=== PATIENT | female | born 1985 | race Hispanic/Latino ===

== ENCOUNTER → 2018-07-07 12:13 | Outpatient (CLI) | payer OTHER, SELFPAY ==
[2018-07-07 13:48] LABS: Thyroid Stimulating Hormone 1.15 uIU/mL (0.47-4.68)
== END ==
PROVIDERS: PCP Hospitalist; Visit Provider Hospitalist
DX: F32.9 Major depressive disorder, single episode, unspecified (principal)
CPT/HCPCS: 36415; 84443

== ENCOUNTER → 2019-06-11 07:58 | Outpatient (CLI) | payer OTHER, SELFPAY ==
[2019-06-11 08:48] LABS: Hematocrit 44.8 % (36-46); Hemoglobin 14.9 g/dL (12.0-16.0); Mean Corpuscular HGB Conc 33.3 % (30-36); Mean Corpuscular Hemoglobin 29.5 PG (26-34); Mean Corpuscular Volume 88.7 fL (80-100); Platelet Count 314 X10^3/uL (150-400); Red Blood Cell Count 5.05 X10^6/uL (4.0-5.2); Red Cell Distribution Width 13.9 % (11.6-14.8); White Blood Cell Count 10.7 X10^3/uL (4.5-11.0)
[2019-06-11 09:01] LABS: Alanine Aminotransferase 29 IU/L (<35); Albumin 4.3 g/dL (3.5-5.0); Albumin Globulin Ratio 1.2 (1.0-2.8); Alkaline Phosphatase 124 U/L (38-126); Aspartate Aminotransferase 30 IU/L (14-36); BUN Creatinine Ratio 15.5 (6-22); Bilirubin Total 0.4 mg/dL (0.2-1.3); Blood Urea Nitrogen 11 mg/dL (7-17); Calcium 9.3 mg/dL (8.4-10.2); Carbon Dioxide 28 mmol/L (22-32); Chloride 104 mmol/L (98-107); Cholesterol 216 mg/dL (140-199); Estimated Glomerular Filt Rate > 60.0 mL/min (>60); Globulin 3.6 g/dL (1.7-4.1); Glucose 86 mg/dL (70-100); HDL Cholesterol 40 mg/dL (40-60); HEMOLYSIS < 15 (0-50); LDL Cholesterol Calculated 148 mg/dL (<100); Potassium 3.6 mmol/L (3.4-5.1); Sodium 141 mmol/L (137-145); Total Protein 7.9 g/dL (6.3-8.2); Triglycerides 139 mg/dL (35-150)
== END ==
PROVIDERS: PCP Nurse Practitioner Family; Referring Provider Nurse Practitioner Family; Visit Provider Nurse Practitioner Family
DX: Z00.00 Encounter for general adult medical examination without abnormal findings (principal); Z13.6 Encounter for screening for cardiovascular disorders
CPT/HCPCS: 36415; 80053; 80061; 85027

== ENCOUNTER → 2020-11-06 10:32 | Outpatient (CLI) | payer OTHER, MEDICAID, SELFPAY ==
[2020-11-06 11:30] LABS: Hematocrit 45.1 % (36-46); Hemoglobin 14.8 g/dL (12.0-16.0); Mean Corpuscular HGB Conc 32.7 % (30-36); Mean Corpuscular Hemoglobin 28.6 PG (26-34); Mean Corpuscular Volume 87.3 fL (80-100); Platelet Count 350 X10^3/uL (150-400); Red Blood Cell Count 5.17 X10^6/uL (4.0-5.2); Red Cell Distribution Width 14.2 % (11.6-14.8); White Blood Cell Count 11.4 X10^3/uL (4.5-11.0)
[2020-11-06 11:52] LABS: Alanine Aminotransferase 34 IU/L (<35); Albumin Globulin Ratio 1.2 (1.0-2.8); Alkaline Phosphatase 105 U/L (38-126); Aspartate Aminotransferase 37 IU/L (14-36); BUN Creatinine Ratio 13.8 (6-22); Bilirubin Total 0.5 mg/dL (0.2-1.3); Blood Urea Nitrogen 9 mg/dL (7-17); Calcium 9.4 mg/dL (8.4-10.2); Carbon Dioxide 26 mmol/L (22-32); Chloride 105 mmol/L (98-107); Cholesterol 230 mg/dL (140-199); Estimated Glomerular Filt Rate > 60.0 mL/min (>60); Globulin 3.4 g/dL (1.7-4.1); Glucose 87 mg/dL (70-100); HDL Cholesterol 42 mg/dL (40-60); HEMOLYSIS < 15 (0-50); LDL Cholesterol Calculated 162 mg/dL (<100); Potassium 3.9 mmol/L (3.4-5.1); Sodium 140 mmol/L (137-145); Total Protein 7.4 g/dL (6.3-8.2); Triglycerides 132 mg/dL (35-150)
== END ==
PROVIDERS: PCP Nurse Practitioner Family; Referring Provider Nurse Practitioner Family; Visit Provider Nurse Practitioner Family
DX: Z00.00 Encounter for general adult medical examination without abnormal findings (principal); Z13.6 Encounter for screening for cardiovascular disorders
CPT/HCPCS: 36415; 80053; 80061; 85027

== ENCOUNTER → 2021-11-25 09:44 | Outpatient (CLI) | payer OTHER, MEDICAID, SELFPAY ==
--- NOTE | 2021-11-25 09:46 | DI.US.S_ITS ---
PROCEDURE: US PELVIC COMPLETE INDICATIONS: INTRAUTERINE DEVICE LOCATION TECHNIQUE: Real-time scanning was performed of the pelvic organs, with image documentation. Additional endovaginal scanning was necessary due to incomplete visualization of the adnexal and endometrial structures by transabdominal scanning. COMPARISON: None. FINDINGS: Uterus: The uterus is retroverted measuring 6.7 x 4 x 3.2 cm. Endometrium measures 5 mm. IUD in the endometrium. There is trace fluid in the cervix. Ovaries: Right ovary measures 3.4 x 2.3 x 2.3 cm. Volume is 9 cc. Left ovary measures 2.8 x 2.2 x 1.6 cm. Volume is 5 cc. Follicles are seen in both ovaries. Other: No pathologic free abdominal or pelvic fluid. IMPRESSION: IUD is seen in the endometrium. We strive to produce accurate, complete, and clear reports of imaging services. To assist us in improving patient care, this report was composed using standard report templates and voice recognition software. Therefore, it may contain abnormal punctuation, insertions and/or omissions. Occasional wrong-word or sound-alike substitutions may occur. Though we review the report and make efforts to correct it, we do recommend that the report be read carefully in proper context to recognize any text inaccuracies. Dictated by: Gurwinder Acevedo M.D. on 11/27/2021 at 9:49 Approved by: Gurwinder Acevedo M.D. on 11/27/2021 at 9:51
== END ==
PROVIDERS: PCP Registered Nurse Diabetes Educator; Referring Provider Registered Nurse Diabetes Educator; Visit Provider Registered Nurse Diabetes Educator
DX: T83.32XA Displacement of intrauterine contraceptive device, initial encounter (principal)
CPT/HCPCS: 76830; 76856

== ENCOUNTER → 2023-02-23 15:33 | Outpatient (CLI) | payer OTHER, MEDICAID, SELFPAY ==
--- NOTE | 2023-02-23 15:35 | DI.RAD.S_ITS ---
PROCEDURE: XR SOFT TISSUE NECK INDICATIONS: pls eval wheezing/stridor by history TECHNIQUE: 2 views of the neck were acquired. COMPARISON: None. FINDINGS: Airway: The airway appears patent. Soft tissues: Prevertebral soft tissues are normal in thickness. The epiglottis and aryepiglottic folds appear normal. No soft tissue gas. Bones: No suspicious bony lesions. Visualized cervical spine is normally aligned. IMPRESSION: There ways patent. The epiglottis is normal. Dictated by: Tab Baxter M.D. on 02/23/2023 at 16:36 Approved by: Tab Baxter M.D. on 02/23/2023 at 16:37
--- NOTE | 2023-02-23 15:35 | DI.RAD.S_ITS ---
PROCEDURE: XR CHEST 2V INDICATIONS: pls eval wheezing/stridor by history TECHNIQUE: 2 views of the chest were acquired. COMPARISON: None. FINDINGS: Surgical changes and devices: None. Lungs and pleura: Lungs are clear. No pleural effusions or pneumothorax. Mediastinum: Mediastinal contours are normal. Heart size is normal. Bones and chest wall: No suspicious bony abnormalities. Soft tissues appear unremarkable. IMPRESSION: No acute cardiopulmonary abnormality is seen. Dictated by: Tab Baxter M.D. on 02/23/2023 at 16:36 Approved by: Tab Baxter M.D. on 02/23/2023 at 16:36
== END ==
PROVIDERS: PCP Registered Nurse Diabetes Educator; Referring Provider Registered Nurse Diabetes Educator; Visit Provider Registered Nurse Diabetes Educator
DX: R06.2 Wheezing (principal); R06.1 Stridor
CPT/HCPCS: 70360; 71046

== ENCOUNTER → 2023-03-23 09:09 | Outpatient (CLI) | payer OTHER, MEDICAID, SELFPAY | LOC: RESP 09:10 | PROVIDERS: PCP Registered Nurse Diabetes Educator; Referring Provider Registered Nurse Diabetes Educator; Visit Provider Registered Nurse Diabetes Educator | DX: R06.2 Wheezing (principal); R06.1 Stridor | CPT/HCPCS: 94060; 94726; 94729 ==

== ENCOUNTER → 2023-05-25 10:09 | Outpatient (CLI) | payer OTHER, MEDICAID, SELFPAY ==
[2023-05-25 10:59] LABS: Hematocrit 46.3 % (36-46); Hemoglobin 15.6 g/dL (12.0-16.0); Mean Corpuscular HGB Conc 33.6 % (30-36); Mean Corpuscular Volume 86.2 fL (80-100); Platelet Count 301 X10^3/uL (150-400); Red Blood Cell Count 5.37 X10^6/uL (4.0-5.2); Red Cell Distribution Width 14.5 % (11.6-14.8); White Blood Cell Count 14.6 X10^3/uL (4.5-11.0)
[2023-05-25 11:51] LABS: TSH w/ Reflex to FT4 1.92 uIU/mL (0.47-4.68)
[2023-05-25 12:27] LABS: Alanine Aminotransferase 30 IU/L (<35); Albumin 4.2 g/dL (3.5-5.0); Albumin Globulin Ratio 1.1 (1.0-2.8); Alkaline Phosphatase 106 U/L (38-126); BUN Creatinine Ratio 14.7 (6-22); Bilirubin Total 0.9 mg/dL (0.2-1.3); Blood Urea Nitrogen 10 mg/dL (7-17); Calcium 9.3 mg/dL (8.4-10.2); Carbon Dioxide 24 mmol/L (22-32); Chloride 106 mmol/L (98-107); Cholesterol 248 mg/dL (140-199); Estimated Glomerular Filt Rate > 60 mL/min (>60); Globulin 3.9 g/dL (1.7-4.1); Glucose 83 mg/dL (70-100); HDL Cholesterol 49 mg/dL (40-60); LDL Cholesterol Calculated 179 mg/dL (<100); Potassium 4.1 mmol/L (3.4-5.1); Sodium 138 mmol/L (137-145); Total Protein 8.1 g/dL (6.3-8.2); Triglycerides 101 mg/dL (35-150)
[2023-05-25 12:30] LABS: Aspartate Aminotransferase 40 IU/L (14-36); HEMOLYSIS 64 (0-50)
== END ==
PROVIDERS: PCP Registered Nurse Diabetes Educator; Referring Provider Registered Nurse Diabetes Educator; Visit Provider Registered Nurse Diabetes Educator
DX: Z00.00 Encounter for general adult medical examination without abnormal findings (principal); E78.5 Hyperlipidemia, unspecified
CPT/HCPCS: 36415; 80053; 80061; 84443; 85027

== ENCOUNTER → 2024-07-12 09:04 | Outpatient (CLI) | payer OTHER, SELFPAY ==
[2024-07-12 10:12] LABS: Add Manual Diff / Slide Review NO; Basophils Absolute Auto 200 /uL (0-100); Basophils Percent Auto 1.2 % (0-2); Eosinophils Absolute Auto 400 /uL (0-450); Eosinophils Percent Auto 2.8 % (2-4); Hematocrit 43.4 % (36-46); Hemoglobin 14.6 g/dL (12.0-16.0); Lymphocytes Absolute Auto 4200 /uL (1100-4500); Lymphocytes Percent Auto 32.6 % (25-40); Mean Corpuscular HGB Conc 33.6 % (30-36); Mean Corpuscular Hemoglobin 28.5 PG (26-34); Mean Corpuscular Volume 84.8 fL (80-100); Monocytes Absolute Auto 700 /uL (0-900); Monocytes Percent Auto 5.6 % (3-14); Neutrophils Absolute Auto 7500 /uL (1500-7000); Neutrophils Percent Auto 57.8 % (50-75); Platelet Count 398 X10^3/uL (150-400); Red Blood Cell Count 5.11 X10^6/uL (4.0-5.2)
[2024-07-12 10:23] LABS: Alanine Aminotransferase 41 IU/L (<35); Albumin 4.2 g/dL (3.5-5.0); Albumin Globulin Ratio 1.1 (1.0-2.8); Alkaline Phosphatase 118 U/L (38-126); Aspartate Aminotransferase 50 IU/L (14-36); BUN Creatinine Ratio 11.5 (6-22); Bilirubin Total 1.2 mg/dL (0.2-1.3); Blood Urea Nitrogen 9 mg/dL (7-17); Calcium 9.3 mg/dL (8.4-10.2); Carbon Dioxide 25 mmol/L (22-32); Chloride 103 mmol/L (98-107); Cholesterol 243 mg/dL (140-199); Estimated Glomerular Filt Rate > 60 mL/min (>60); Glucose 88 mg/dL (70-100); HDL Cholesterol 51 mg/dL (40-60); HEMOLYSIS 42 (0-50); LDL Cholesterol Calculated 172 mg/dL (<100); Potassium 4.4 mmol/L (3.4-5.1); Sodium 139 mmol/L (137-145); Total Protein 8.2 g/dL (6.3-8.2); Triglycerides 100 mg/dL (35-150)
[2024-07-12 10:37] LABS: HEMOLYSIS 38 (0-50); Iron 60 ug/dL (37-170)
[2024-07-12 10:49] LABS: Percent Iron Saturation 24 % (15-50); Total Iron Binding Capacity 247 ug/dL (265-497); Transferrin 201 mg/dL (206-381)
[2024-07-12 10:57] LABS: Ferritin 46 ng/mL (6-137)
[2024-07-12 11:06] LABS: TSH w/ Reflex to FT4 2.45 uIU/mL (0.47-4.68)
[2024-07-12 11:18] LABS: Hepatitis B Surface Antigen NEGATIVE s/c (NEGATIVE)
[2024-07-12 11:37] LABS: Hep C Virus Ab w/Reflex Quant NEGATIVE s/c (NEGATIVE)
== END ==
PROVIDERS: PCP Registered Nurse Diabetes Educator; Referring Provider Registered Nurse Diabetes Educator; Visit Provider Registered Nurse Diabetes Educator
DX: E78.5 Hyperlipidemia, unspecified (principal); D72.829 Elevated white blood cell count, unspecified; R74.8 Abnormal levels of other serum enzymes
CPT/HCPCS: 36415; 80053; 80061; 82728; 83540; 83550; 84443; 85025; 86803; 87340

== ENCOUNTER → 2024-07-26 09:18 | Outpatient (CLI) | payer OTHER, SELFPAY ==
[2024-07-26 10:51] LABS: Add Manual Diff / Slide Review NO; Basophils Absolute Auto 100 /uL (0-100); Basophils Percent Auto 0.9 % (0-2); Eosinophils Absolute Auto 200 /uL (0-450); Eosinophils Percent Auto 2.1 % (2-4); Hematocrit 42.6 % (36-46); Hemoglobin 14.5 g/dL (12.0-16.0); Lymphocytes Absolute Auto 2700 /uL (1100-4500); Lymphocytes Percent Auto 28.4 % (25-40); Mean Corpuscular Hemoglobin 29.1 PG (26-34); Mean Corpuscular Volume 85.5 fL (80-100); Monocytes Absolute Auto 600 /uL (0-900); Monocytes Percent Auto 6.1 % (3-14); Neutrophils Absolute Auto 6000 /uL (1500-7000); Neutrophils Percent Auto 62.5 % (50-75); Platelet Count 347 X10^3/uL (150-400); Red Blood Cell Count 4.98 X10^6/uL (4.0-5.2); Red Cell Distribution Width 14.8 % (11.6-14.8); White Blood Cell Count 9.5 X10^3/uL (4.5-11.0)
[2024-07-26 11:14] LABS: Erythrocyte Sedimentation Rate 11 MM/HR (0-20)
[2024-07-26 11:42] LABS: C-Reactive Protein Quant 3.7 mg/dL (<1.0)
== END ==
PROVIDERS: PCP Registered Nurse Diabetes Educator; Referring Provider Registered Nurse Diabetes Educator; Visit Provider Registered Nurse Diabetes Educator
DX: D72.829 Elevated white blood cell count, unspecified (principal)
CPT/HCPCS: 36415; 85025; 85651; 86140

== ENCOUNTER → 2024-07-27 08:14 | Outpatient (CLI) | payer OTHER, SELFPAY ==
--- NOTE | 2024-07-27 08:16 | DI.US.S_ITS ---
PROCEDURE: US ABDOMEN LIMITED INDICATIONS: eval elevated liver enzymes TECHNIQUE: Real-time scanning was performed of the abdominal and retroperitoneal organs, with image documentation. COMPARISON: None. FINDINGS: Liver: Liver is enlarged measuring 19.3 cm increased echogenicity. Focal fatty sparing is seen adjacent to the gallbladder. Gallbladder: No gallstones. No wall thickening. No pericholecystic edema. Negative sonographic Linton's sign. Biliary ducts: Intrahepatic bile ducts are non-dilated. Extrahepatic bile duct caliber measures 5.1 mm. Normal is 6-7 mm or less in diameter, or 10 mm or less post-cholecystectomy. Pancreas: Not seen. Miscellaneous: No free abdominal fluid. IMPRESSION: Liver is enlarged and increased in echogenicity, consistent with hepatic steatosis. Dictated by: Sean Ruiz M.D. on 07/27/2024 at 14:15 Approved by: Sean Ruiz M.D. on 07/27/2024 at 14:16
== END ==
PROVIDERS: PCP Registered Nurse Diabetes Educator; Referring Provider Registered Nurse Diabetes Educator; Visit Provider Registered Nurse Diabetes Educator
DX: R74.8 Abnormal levels of other serum enzymes (principal); R16.0 Hepatomegaly, not elsewhere classified
CPT/HCPCS: 76705